=== PATIENT | female | born 1935 | race Caucasian/White ===

== ENCOUNTER 2017-10-16 21:52 | Inpatient (IN) | payer OTHER, BC ==
[~2017-10-16] VITALS: Ht 165.1 cm; Wt 77.2 kg
[~2017-10-16 21:52] MED LIST: AMBIEN CR12.5 MG PO; AMBIEN CR6.25 MG PO; AMBIEN10 MG PO; ARMOUR THYROID30 MG PO; ASCORBIC ACID500 M3 PO; Ambien PO; B-123000 MCG SL; BABY ASPIRIN81 M1 PO; BISOPROLOL-HCT1 EAC2 PO; CALCIUM 600 +1 EACH PO; CALTRATE 6001 TABLET PO; CELEBREX200 MG PO; CENTRUM COMPLE1 EACH PO; CHLORZOXAZONE500 MG; CHLORZOXAZONE500 MG PO; CLARITIN-D 11 TABLE1 PO; ENDOCET 7.5-321 EACH PO; FIBER DIET1 EACH PO; FISH OIL CONC1 EACH PO; FLONASE16 GM NS; GABAPENTIN100 MG PO; HYDROCHLOROTHIA25 MG PO; LISINOPRIL-HCT1 EACH PO; LO-DOSE ASPIRIN81 M2 PO; LOMOTIL2.5 MG/5 M PO; LYRICA100 MG; LYRICA100 MG PO; METFORMIN HCL500 M1 PO; NEXIUM40 MG PO; OMEGA 3-6-91200 MG PO; OMEPRAZOLE20 M1 PO; OXECTA7.5 MG PO; PARAFON FORTE500 MG PO; Percocet 7.5/325,End PO; ROZEREM8 MG PO; TRAZODONE HCL50 MG PO; TYLENOL REGULA325 MG PO; VITAMIN C W/AC500 M1 PO; VITAMIN D2000 UNIT PO; VITAMIN D33000 UNIT PO; ZOCOR40 MG PO; ZOLOFT50 MG PO; Zestoretic,Prinzide PO; [UNRECOGNIZED DRUG - REMARK]; celeBREX PO
[2017-10-16 22:39] LABS: HEMATOCRIT 37.6 % (36.0-46.0); HEMOGLOBIN 11.7 G/DL (11.9-15.5); MCH 27.4 PG (29.0-34.0); MCHC 31.1 G/DL (30.0-36.0); MCV 88.1 FL (83-99); PLATELET COUNT 273 K/uL (156-360); RBC DIS.WIDTH-CV 17.4 % (11.8-14.6); RBC DIS.WIDTH-SD 55.8 % (39-53); RED BLOOD COUNT 4.27 M/uL (3.80-5.20); WHITE BLOOD COUNT 14.6 K/uL (4.1-10.2)
[2017-10-16 22:50] LABS: ALBUMIN 4.1 g/dL (3.2-4.8); CHLORIDE 104 mEq/L (99-109); SODIUM 140 mEq/L (136-147)
[2017-10-16 22:51] LABS: MAGNESIUM 1.9 mg/dL (1.3-2.7)
[2017-10-16 22:52] LABS: GLUCOSE 139 mg/dL (70-99)
[2017-10-16 22:54] LABS: TOTAL BILIRUBIN 0.4 mg/dL (0.0-1.0)
[2017-10-16 22:56] LABS: ALKALINE PHOSPHATASE 81 IU/L (3-129); GFR ESTIMATE (CALCULATED) 57 mL/min/
[2017-10-16 22:57] LABS: UREA NITROGEN (BUN) 23 mg/dL (9-23)
[2017-10-16 22:58] LABS: AST (GOT) 23 IU/L (2-34)
[2017-10-16 22:59] LABS: ALT (GPT) 22 IU/L (3-49); CREATINE KINASE 109 IU/L (1-294); LIPASE 44 U/L (1.0-51.0); TOTAL CK 109 IU/L (1-294)
[2017-10-16 23:05] LABS: CKMB RELATIVE INDEX 1.8 (0.0-3.9)
[2017-10-17] MEDS ORDERED: PRINZIDE 10-121 EACH PO (00:55)
[2017-10-17] MEDS ORDERED: NEURONTIN100 MG PO (00:56)
[2017-10-17] MEDS ORDERED: ONE DAILY ESSE1 EACH PO (00:58)
[2017-10-17] MEDS ORDERED: FIBER500 MG PO (00:59)
[2017-10-17] MEDS ORDERED: POTASSIUM-9999 MG PO (01:03)
[2017-10-17] MEDS ORDERED: MEGA BENFOTIAMINE PO (01:09)
[2017-10-17] MEDS ORDERED: MAGNESIUM OXID500 M1 PO (01:13)
[2017-10-17 01:23] LABS: TROP-I INTERPRETATION NEGATIVE; TROPONIN-I < 0.01 ng/mL (0.0-0.30)
[2017-10-17 01:26] LABS: APPEARANCE CLEAR ((CLEAR)); BILIRUBIN NEGATIVE; BLOOD NEGATIVE; COLOR YELLOW ((YELLOW)); GLUCOSE (STRIP) NEGATIVE; KETONES NEGATIVE; LEUKOCYTES LARGE; NITRITE NEGATIVE; PROTEIN (STRIP) NEGATIVE; SPECIFIC GRAVITY 1.014 (1.000-1.030); UROBILINOGEN 0.2 MG/DL (0.2-1.0)
[2017-10-17 01:30] LABS: BACTERIA RARE /HPF; EPITHELIAL CELLS 1+ /HPF; MUCUS NONE SEEN /LPF; RED BLOOD CELLS 0-5 /HPF (0-5); UCUL ADDED? YES; WHITE BLOOD CELLS 30-40 /HPF (0-5)
[2017-10-17 04:07] VITALS: BP 160/80
[2017-10-17 07:48] VITALS: BP 176/77
[2017-10-17 15:40] VITALS: BP 143/72
[2017-10-17 18:23] LABS: SERUM ETHYL ALCOHOL < 10 mg/dL
[2017-10-17 18:30] LABS: BENZODIAZEPINES, URINE SCREEN Negative (200 ng/mL)
[2017-10-17 18:38] LABS: THYROTROPIN (TSH) 1.4 MIU/L (0.4-5.5)
[2017-10-17 19:30] VITALS: BP 156/72
[2017-10-17 23:46] VITALS: BP 128/66
[2017-10-18 04:38] VITALS: BP 126/62
[2017-10-18 07:47] VITALS: BP 155/75
[2017-10-18 15:45] VITALS: BP 140/72
[2017-10-19 00:06] VITALS: BP 149/70
[2017-10-19 07:35] VITALS: BP 140/70
[2017-10-19 16:00] VITALS: BP 138/80
[2017-10-19 23:36] VITALS: BP 151/79
[2017-10-20 08:09] VITALS: BP 159/78
[2017-10-20 16:33] VITALS: BP 139/66
[2017-10-21 00:14] VITALS: BP 168/74
[2017-10-21 07:57] VITALS: BP 152/80
[2017-10-21] MEDS ORDERED: ROPINIROLE HCL0.5 MG PO (11:29)
== END 2017-10-21 14:29 | disposition home health service (06) | DRG 563 ==
LOC: EME 21:52 → EDOF 10-17 01:30 → 5SOUTH 10-17 01:30 → ENRESERV 10-17 01:35 → 5SOUTH 10-17 03:46 → ENPENDDIS 10-21 11:53 → 5SOUTH 10-21 14:29
PROVIDERS: Emergency Medicine; Hospitalist
DX: S82.61XA Displaced fracture of lateral malleolus of right fibula, initial encounter for closed fracture (principal); R29.898 Other symptoms and signs involving the musculoskeletal system; G25.81 Restless legs syndrome; I10 Essential (primary) hypertension; R45.1 Restlessness and agitation; R32 Unspecified urinary incontinence; G89.29 Other chronic pain; W18.30XA Fall on same level, unspecified, initial encounter; N39.0 Urinary tract infection, site not specified; E11.9 Type 2 diabetes mellitus without complications; Z91.09 Other allergy status, other than to drugs and biological substances; L03.115 Cellulitis of right lower limb; M54.5 Low back pain; F41.9 Anxiety disorder, unspecified; R41.82 Altered mental status, unspecified; Z66 Do not resuscitate; H91.90 Unspecified hearing loss, unspecified ear; Z79.899 Other long term (current) drug therapy; M48.061 Spinal stenosis, lumbar region without neurogenic claudication; Z91.19 Patient's noncompliance with other medical treatment and regimen; Z90.12 Acquired absence of left breast and nipple; Y92.9 Unspecified place or not applicable; Z91.81 History of falling; Z90.49 Acquired absence of other specified parts of digestive tract; Z79.82 Long term (current) use of aspirin; Z85.3 Personal history of malignant neoplasm of breast
CPT/HCPCS: 70450; 70551; 71045; 73030; 73502; 73610; 80053; 80306 90; 81003; 82550; 82553; 82948; 83605; 83690; 83735; 84443; 84484; 85027; 87040; 87086; 93005; 93970; 97530 GO; 97530 GP; 99281; 99285; G0378; G0480; G8978 GP CM; G8979 GP CM; J0690; J1644; J1815; J1956; J2060; J7030

== ENCOUNTER 2017-10-23 00:31 | Emergency (ER) | payer OTHER, BC ==
[~2017-10-23] VITALS: Ht 167.6 cm; Wt 71.0 kg
[~2017-10-23 00:31] MED LIST changes: +FIBER500 MG PO; +MAGNESIUM OXID500 M1 PO; +MEGA BENFOTIAMINE PO; +NEURONTIN100 MG PO; +ONE DAILY ESSE1 EACH PO; +POTASSIUM-9999 MG PO; +PRINZIDE 10-121 EACH PO; +ROPINIROLE HCL0.5 MG PO
[2017-10-23 04:57] LABS: BASOPHIL (%) 0.4 % (0-1); BASOPHIL COUNT 0.1 K/uL (0-0.1); EOSINOPHIL (%) 0.7 % (0-5); EOSINOPHIL COUNT 0.1 K/uL (0-0.3); HEMOGLOBIN 11.1 G/DL (11.9-15.5); IMMATURE GRANULOCYTE (%) 0.2 % (0.0-0.7); LYMPHOCYTE (%) 17.8 % (15-42); LYMPHOCYTE COUNT 2.2 K/uL (1.0-2.8); MCHC 32.6 G/DL (30.0-36.0); MCV 85.9 FL (83-99); MONOCYTE (%) 8.9 % (3-12); MONOCYTE COUNT 1.1 K/uL (0-0.8); NEUTROPHIL COUNT 8.7 K/uL (1.8-6.4); PLATELET COUNT 271 K/uL (156-360); RBC DIS.WIDTH-CV 17.4 % (11.8-14.6); RBC DIS.WIDTH-SD 54.7 % (39-53); RED BLOOD COUNT 3.96 M/uL (3.80-5.20); WHITE BLOOD COUNT 12.1 K/uL (4.1-10.2)
[2017-10-23 05:16] LABS: CHLORIDE 106 mEq/L (99-109); POTASSIUM 4.2 mEq/L (3.7-5.4); SODIUM 139 mEq/L (136-147)
[2017-10-23 05:17] LABS: ALBUMIN 3.8 g/dL (3.2-4.8)
[2017-10-23 05:22] LABS: GLUCOSE 154 mg/dL (70-99); TOTAL BILIRUBIN 0.6 mg/dL (0.0-1.0)
[2017-10-23 05:23] LABS: GFR ESTIMATE (CALCULATED) 57 mL/min/; TOTAL PROTEIN 6.5 g/dL (6.4-8.3)
[2017-10-23 05:27] LABS: UREA NITROGEN (BUN) 28 mg/dL (9-23)
[2017-10-23 05:28] LABS: AST (GOT) 20 IU/L (2-34)
[2017-10-23 05:29] LABS: ALT (GPT) 9 IU/L (3-49)
[2017-10-23 05:30] LABS: ALKALINE PHOSPHATASE 80 IU/L (3-129)
[2017-10-23 11:49] VITALS: BP 142/90
== END 2017-10-23 11:49 | disposition home or self-care (01) ==
LOC: EME → EDBD 00:31 → EME 00:31
PROVIDERS: Emergency Medicine
DX: S80.11XA Contusion of right lower leg, initial encounter (principal); S30.0XXA Contusion of lower back and pelvis, initial encounter; S40.011A Contusion of right shoulder, initial encounter; G62.9 Polyneuropathy, unspecified; W18.30XA Fall on same level, unspecified, initial encounter; E11.9 Type 2 diabetes mellitus without complications; I10 Essential (primary) hypertension; G25.81 Restless legs syndrome; K21.9 Gastro-esophageal reflux disease without esophagitis; F32.9 Major depressive disorder, single episode, unspecified; Z90.12 Acquired absence of left breast and nipple; Z90.49 Acquired absence of other specified parts of digestive tract; Z79.84 Long term (current) use of oral hypoglycemic drugs; Z79.82 Long term (current) use of aspirin; Z88.5 Allergy status to narcotic agent; Z88.8 Allergy status to other drugs, medicaments and biological substances
CPT/HCPCS: 72131; 72170; 73060; 80053; 85025; 99281; 99285; G8978 GP CM; G8979 CJ; G8980 GP CM; G8987 GO CM; G8988 GO CK; G8989 GO CM

== ENCOUNTER → 2017-12-19 | Outpatient (CLI) | payer OTHER, BC | END | disposition home or self-care (01) | LOC: RAD 11:00 | DX: M47.892 Other spondylosis, cervical region (principal); M25.78 Osteophyte, vertebrae; R53.1 Weakness | CPT/HCPCS: 72141 ==